=== PATIENT | male | born 1950 | race Caucasian/White ===

== ENCOUNTER → 2017-07-04 | Outpatient (CLI) | payer MEDICARE, OTHER ==
[~2017-07-04] MED LIST: ALLO300T2 PO; ALPR0.25 PO; AMLO5TAB2 PO; ATEN50TA PO; CLOT1CRE6 TOPICAL; FENO48TA PO; FURO20TA PO; LISI40TA PO; MEDR4PAK PO
[2017-07-04 10:04] LABS: INDIRECT BILIRUBIN 0.5 MG/DL (0.0-0.8); TOTAL BILIRUBIN ADULT 0.7 MG/DL (0.2-1.0)
== END ==
LOC: CLAB 08:59
PROVIDERS: ATTEND Internal Medicine Gastroenterology
DX: K76.0 Fatty (change of) liver, not elsewhere classified (principal)
CPT/HCPCS: 36415; 80076

== ENCOUNTER → 2017-08-11 | Outpatient (CLI) | payer MEDICARE, OTHER ==
[2017-08-11 09:33] LABS: HEMATOCRIT 42.1 % (39.0-51.0); MEAN CELL VOLUME 93.6 FL (80.0-100.0); MEAN CORPUSCULAR HEMOGLOBIN 31.6 PG (27.0-34.0); MEAN CORPUSCULAR HGB CONC 33.7 % (32.0-36.0); PLATELET COUNT 94 TH/MM3 (150-450); RED CELL DISTRIBUTION WIDTH 15.9 % (11.6-17.2); WHITE BLOOD COUNT 6.9 TH/MM3 (4.0-11.0)
[2017-08-11 09:39] LABS: REVIEW FLAG FINAL
[2017-08-11 10:20] LABS: BICARBONATE 24.3 MEQ/L (21.0-32.0); POTASSIUM 4.1 MEQ/L (3.5-5.1)
[2017-08-11 10:26] LABS: BLOOD, URINE NEG (NEG); GLUCOSE,URINE NEG (NEG); KETONE, URINE NEG (NEG); NITRITE,URINE NEG (NEG); PH, URINE 5.5 (5.0-8.5); URINE COLOR YELLOW (YELLW/STRAW)
== END ==
LOC: CLAB 09:05
PROVIDERS: ATTEND Internal Medicine Nephrology
DX: N18.3 Chronic kidney disease, stage 3 (moderate) (principal)
CPT/HCPCS: 36415; 80069; 81001; 85027

== ENCOUNTER 2018-01-02 04:26 | Emergency (ER) | payer MEDICARE, OTHER ==
[~2018-01-02] VITALS: Ht 175.3 cm; Wt 113.6 kg
[~2018-01-02 04:26] MED LIST changes: -FENO48TA PO; +ROSU1TAB6 PO
[2018-01-02 04:32] VITALS: BP 152/82; PULSE 89; RESP 18; TEMP 98.4; O2SAT 97
[2018-01-02] MEDS ORDERED: MORPHINE SULFATE 2 MG/ML INJ IV PUSH ONE (04:45)
[2018-01-02] MEDS ORDERED: SODIUM CHLORIDE 0.9% FLUSH 10 ML FLUSH IV FLUSH PRN (04:45)
[2018-01-02] MEDS ORDERED: ONDANSETRON HCL 4 MG/2 ML VIAL IVP ONE (04:45)
--- NOTE | 2018-01-02 05:02 | PD ---
HPI Chief Complaint: GI Complaint Time Seen by Provider: 04:40 Travel History International Travel<30 days: No Contact w/Intl Traveler<30days: No Traveled to known affect area: No History of Present Illness HPI 67-year-old male presents to the emergency department for complaint of 8/10 upper abdominal pain 2 days associated with nausea radiating into his back. Patient denies chest pain shortness of breath sweats vomiting or change in bowel habit. No report of injury. Patient is concerned he may have pancreatitis. Patient is status post cholecystectomy. Patient has hypertension hypertriglyceridemia patient rates his pain 8/10 intensity. Patient is taking no medication for symptom relief. Patient is unable to identify exacerbating or alleviating factors. Patient admits to alcohol use and has been drinking alcohol recently. Patient also has history of hypertriglyceridemia. No report of hematemesis coffee-ground emesis melena hematochezia. PFSH Past Medical History Narrative Medical Hypertension dyslipidemia gouty arthritis hypothyroidism CHF chronic kidney disease; alcohol use; nursing notes ?: Not Social History Tobacco Use: No Allergies-Medications (Allergen,Severity, Reaction): Coded Allergies: No Known Allergies (Verified Allergy, Unknown, 09/29/17) Reported Meds & Prescriptions Reported Meds & Active Scripts Active Zofran Odt (Ondansetron Odt) 4 Mg Tab 4 Mg SL Q6HR PRN Carafate (Sucralfate) 1 Gram Tab 1 Gm PO Q6HR 7 Days On empty stomach Rosuvastatin (Rosuvastatin Calcium) 10 Mg Tab 10 Mg PO HS Clotrimazole Anti-Fungal Topical (Clotrimazole) 1% Cream 1 Applic TOPICAL BID Reported Furosemide 20 Mg Tab 20 Mg PO DAILY Atenolol 50 Mg Tab 50 Mg PO DAILY Amlodipine (Amlodipine Besylate) 5 Mg Tab 5 Mg PO DAILY Lisinopril 40 Mg Tab 40 Mg PO DAILY Review of Systems Except as stated in HPI: all other systems reviewed are Neg General / Constitutional: No: Fever, Chills HENT: No: Congestion Cardiovascular: No: Chest Pain or Discomfort Respiratory: No: Shortness of Breath Gastrointestinal: Positive: Nausea, Abdominal Pain Genitourinary: No: Dysuria, Flank Pain Musculoskeletal: No: Myalgias, Arthralgias Skin: No Rash Neurologic: No: Weakness Psychiatric: No: Anxiety Hematologic/Lymphatic: No: Lymph Node Enlargement Physical Exam Narrative GENERAL: Well-developed well-nourished male no acute distress or respiratory distress SKIN: Warm and dry. Multiple abdominal wall petechia, no purpuric lesions no vesicles no pustules HEAD: Normocephalic. EYES: No scleral icterus. No injection or drainage. NECK: Supple, trachea midline. No JVD or lymphadenopathy. CARDIOVASCULAR: Regular rate and rhythm without murmurs, gallops, or rubs. RESPIRATORY: Breath sounds equal bilaterally. No accessory muscle use. GASTROINTESTINAL: Abdomen soft, non-tender, nondistended. Petechia noted to abdominal wall. (Patient reports "I have liver disease." "This looks good.") MUSCULOSKELETAL: No cyanosis, or edema. BACK: Nontender without obvious deformity. No CVA tenderness. Data Data Last Documented VS Orders Orders Complete Blood Count With Diff (01/02/18 04:40) Comprehensive Metabolic Panel (01/02/18 04:40) Lipase (01/02/18 04:40) Prothrombin Time / Inr (Pt) (01/02/18 04:40) Act Partial Throm Time (Ptt) (01/02/18 04:40) Ct Abd/Pel W Iv Contrast(Rout) (01/02/18 04:40) Iv Access Insert/Monitor (01/02/18 04:40) Ecg Monitoring (01/02/18 04:40) Oximetry (01/02/18 04:40) Ondansetron Inj (Zofran Inj) (01/02/18 04:45) Sodium Chloride 0.9% Flush (Ns Flush) (01/02/18 04:45) Electrocardiogram (01/02/18 04:40) Alcohol (Ethanol) (01/02/18 04:40) Magnesium (Mg) (01/02/18 04:40) Troponin I (01/02/18 04:40) Morphine Inj (Morphine Inj) (01/02/18 04:45) Iohexol 350 Inj (Omnipaque 350 Inj) (01/02/18 05:55) Pantoprazole Inj (Protonix Inj) (01/02/18 06:30) Ketorolac Inj (Toradol Inj) (01/02/18 06:30) Sucralfate Liq (Carafate Liq) (01/02/18 07:00) Ed Discharge Order (01/02/18 06:57) Labs Laboratory Tests Test 01/02/18 05:00 White Blood Count 6.7 TH/MM3 Red Blood Count 4.83 MIL/MM3 Hemoglobin 14.8 GM/DL Hematocrit 44.6 % Mean Corpuscular Volume 92.4 FL Mean Corpuscular Hemoglobin 30.7 PG Mean Corpuscular Hemoglobin Concent 33.2 % Red Cell Distribution Width 14.6 % Platelet Count 106 TH/MM3 Mean Platelet Volume 6.9 FL Neutrophils (%) (Auto) 63.0 % Lymphocytes (%) (Auto) 21.9 % Monocytes (%) (Auto) 8.4 % Eosinophils (%) (Auto) 1.8 % Basophils (%) (Auto) 4.9 % Neutrophils # (Auto) 4.2 TH/MM3 Lymphocytes # (Auto) 1.5 TH/MM3 Monocytes # (Auto) 0.6 TH/MM3 Eosinophils # (Auto) 0.1 TH/MM3 Basophils # (Auto) 0.3 TH/MM3 CBC Comment DIFF FINAL Differential Comment Prothrombin Time 11.2 SEC Prothromb Time International Ratio 1.1 RATIO Activated Partial Thromboplast Time 28.2 SEC Blood Urea Nitrogen 18 MG/DL Creatinine 1.20 MG/DL Random Glucose 117 MG/DL Total Protein 7.0 GM/DL Albumin 4.0 GM/DL Calcium Level 8.9 MG/DL Magnesium Level 1.6 MG/DL Alkaline Phosphatase 63 U/L Aspartate Amino Transf (AST/SGOT) 27 U/L Alanine Aminotransferase (ALT/SGPT) 46 U/L Total Bilirubin 1.2 MG/DL Sodium Level 139 MEQ/L Potassium Level 3.7 MEQ/L Chloride Level 105 MEQ/L Carbon Dioxide Level 25.6 MEQ/L Anion Gap 8 MEQ/L Estimat Glomerular Filtration Rate 60 ML/MIN Troponin I LESS THAN 0.02 NG/ML Lipase 176 U/L Ethyl Alcohol Level LESS THAN 3 MG/DL MDM Medical Decision Making Medical Screen Exam Complete: Yes Emergency Medical Condition: Yes Medical Record Reviewed: Yes Interpretation(s) CBC & BMP Diagram 01/02/18 05:00 Total Protein 7.0, Albumin 4.0, Calcium Level 8.9, Magnesium Level 1.6, Alkaline Phosphatase 63, Aspartate Amino Transf (AST/SGOT) 27, Alanine Aminotransferase (ALT/SGPT) 46, Total Bilirubin 1.2 H Vital Signs Date Time Temp Pulse Resp B/P (MAP) Pulse Ox O2 Delivery O2 Flow Rate FiO2 01/02/18 04:32 98.4 89 18 152/82 (105) 97 EKG: Normal sinus rhythm rate [address] elevation injury pattern or ectopy noted Troponin I: less than 0.02, not elevated Last Impressions Abdomen/Pelvis CT 01/02/18 0440 Signed Impressions: Service Date/Time: Tuesday, January 02, 2018 05:48 - CONCLUSION: 1. No acute finding is identified to explain the upper abdominal pain. There is a midline fat-containing hernia superior to the umbilicus. 2. Marked splenomegaly. The spleen measures greater than 23 cm in length. 3. Nonacute findings include mild atherosclerotic disease, bilateral renal cysts, and prostatomegaly. Nate Nunez MD Differential Diagnosis Abdominal pain, gastritis, choledocholithiasis, pancreatitis, abdominal aortic aneurysm, atypical chest pain, ACS, [place] Narrative Course IV access obtained patient placed on court monitor with continuous pulse oximetry patient administered Zofran 4 mg IV and morphine sulfate 3 mg IV Patient resting comfortably states some mild persistent tenderness to the epigastric that is reproducible with palpation Lab values grossly normal range troponin I is less than 0.02 EKG shows no acute ST elevation injury pattern CT abdomen pelvis shows splenomegaly and no acute intra-abdominal or pelvic abnormality no ascites. Patient's M alcohol is less than 3. Patient has known history of Multani and is encouraged not to drink alcoholic beverages Patient given Protonix 40 mg IV Toradol 30 mg IV and Carafate 1 g by mouth. Patient states he feels much improved and is desirous of being discharged home and plans to follow-up with his primary care provider this week. Patient is encouraged to return the emergency department for any concerns or change in condition Diagnosis Primary Impression: Gastritis Qualified Codes: K29.00 - Acute gastritis without bleeding Additional Impressions: Thrombocytopenia Splenomegaly Referrals: Primary Care Physician 2 days Patient Instructions: Narcotic given in the ED, General Instructions Additional Instructions: Follow-up with primary care provider Take medication as prescribed Take chronic medications as chronically prescribed Do not drink alcoholic beverages Do not use nonsteroidal anti-inflammatory medications such as ibuprofen/Motrin/ Advil or Naprosyn/naproxen/Aleve Return the emergency department for any concerns or change in condition Med/Other Pt SpecificInfo: Prescription(s) given Scripts Ondansetron Odt (Zofran Odt) 4 Mg Tab 4 MG SL Q6HR Y for Nausea/Vomiting, #10 TAB 0 Refills Prov: Christine Alfredo MD 01/02/18 Sucralfate (Carafate) 1 Gram Tab 1 GM PO Q6HR for Ulcer Prevention for 7 Days, #120 TAB 0 Refills On empty stomach Prov: Christine Alfredo MD 01/02/18 Disposition: 01 DISCHARGE HOME Condition: Stable Christine Alfredo MD Jan 02, 2018 05:02
[2018-01-02 05:06] LABS: AUTOMATED NEUTROPHIL # 4.2 TH/MM3 (1.8-7.7); BASOPHIL # 0.3 TH/MM3 (0-0.2); BASOPHIL % 4.9 % (0.0-2.0); EOSINOPHIL # 0.1 TH/MM3 (0-0.4); EOSINOPHIL % 1.8 % (0.0-4.0); HEMATOCRIT 44.6 % (39.0-51.0); HEMOGLOBIN 14.8 GM/DL (13.0-17.0); LYMPH % 21.9 % (9.0-44.0); LYMPHOCYTE # 1.5 TH/MM3 (1.0-4.8); MEAN CELL VOLUME 92.4 FL (80.0-100.0); MEAN CORPUSCULAR HEMOGLOBIN 30.7 PG (27.0-34.0); MEAN CORPUSCULAR HGB CONC 33.2 % (32.0-36.0); MEAN PLATELET VOLUME 6.9 FL (7.0-11.0); MONO % 8.4 % (0.0-8.0); MONOCYTE # 0.6 TH/MM3 (0-0.9); PLATELET COUNT 106 TH/MM3 (150-450); RED BLOOD COUNT 4.83 MIL/MM3 (4.50-5.90); RED CELL DISTRIBUTION WIDTH 14.6 % (11.6-17.2); WHITE BLOOD COUNT 6.7 TH/MM3 (4.0-11.0)
[2018-01-02 05:24] LABS: CHLORIDE 105 MEQ/L (98-107); SODIUM (NA) 139 MEQ/L (136-145)
[2018-01-02 05:29] LABS: CALCIUM 8.9 MG/DL (8.5-10.1); INTERNATIONAL NORMALIZED RATIO 1.1 RATIO; PROTHROMBIN TIME - PATIENT 11.2 SEC (9.8-11.6)
[2018-01-02 05:30] LABS: BICARBONATE 25.6 MEQ/L (21.0-32.0); BLOOD UREA NITROGEN 18 MG/DL (7-18); GLUCOSE,RANDOM 117 MG/DL (74-106); MAGNESIUM 1.6 MG/DL (1.5-2.5)
[2018-01-02 05:32] LABS: ALT (GPT) 46 U/L (12-78); AST (GOT) 27 U/L (15-37); GLOMERULAR FILTRATION RATE 60 ML/MIN (>89)
[2018-01-02 05:34] LABS: TOTAL BILIRUBIN ADULT 1.2 MG/DL (0.2-1.0)
[2018-01-02 05:35] LABS: ALKALINE PHOSPHATASE 63 U/L (45-117)
[2018-01-02 05:38] LABS: TROPONIN I LESS THAN 0.02 NG/ML (0.02-0.05)
[2018-01-02] MEDS ORDERED: IOHEXOL 350 MG/ML 10 ML VIAL (for RAD DIAG) IVCONTRAST ONE (05:55)
--- NOTE | 2018-01-02 06:15 | RADRPT ---
EXAM DATE/TIME: 01/02/2018 05:48 [facility] COMPARISON: No previous studies available for comparison. INDICATIONS : Upper abdominal pain. IV CONTRAST: 100 cc Omnipaque 350 (iohexol) IV ORAL CONTRAST: No oral contrast ingested. RADIATION DOSE: 21.47 CTDIvol (mGy) MEDICAL HISTORY : Hypertension. Congestive heart failure. SURGICAL HISTORY : None. ENCOUNTER: Initial ACUITY: 2 days PAIN SCALE: 8/10 LOCATION: upper quadrant TECHNIQUE: Volumetric scanning of the abdomen and pelvis was performed. Using automated exposure control and ad justment of the mA and/or kV according to patient size, radiation dose was kept as low as reasonably achievable to obtain optimal diagnostic quality images. DICOM format image data is available electro nically for review and comparison. FINDINGS: LOWER LUNGS: The visualized lower lungs are clear. LIVER: There are 3 low-density lesions within the liver measuring between 5 mm and 8 mm. These are too small to characterize. Patient is post cholecystectomy clips in the gallbladder fossa. There is no dilati on of the biliary tree. SPLEEN: Spleen is significantly enlarged measuring 23.1 cm. No focal lesion is seen. PANCREAS: Within normal limits. KIDNEYS: Normal in size and shape. There is no mass, stone or hydronephrosis. There is a 3.9 cm and 1.3 cm lo w-density lesion in the right mid kidney and a 4.6 cm low-density lesion in the left mid kidney all o f which have density measurements consistent with simple cysts. There is a 7 mm low-density lesion in the lower pole the right kidney which is incidental and too small to characterize. ADRENAL GLANDS: Within normal limits. VASCULAR: There is no aortic aneurysm. There is mild atherosclerotic disease. BOWEL/MESENTERY: The stomach, small bowel, and colon demonstrate no acute abnormality. There is no free intraperitone al air or fluid. There is sigmoid diverticulosis. The appendix is normal. ABDOMINAL WALL: There is a fat-containing midline anterior abdominal wall hernia superior to the umbilicus. RETROPERITONEUM: There is no lymphadenopathy. BLADDER: No wall thickening or mass. REPRODUCTIVE: Prostate gland is enlarged. INGUINAL: There is no lymphadenopathy or hernia. MUSCULOSKELETAL: There are degenerative changes of the lumbar spine. CONCLUSION: 1. No acute finding is identified to explain the upper abdominal pain. There is a midline fat-contain ing hernia superior to the umbilicus. 2. Marked splenomegaly. The spleen measures greater than 23 cm in length. 3. Nonacute findings include mild atherosclerotic disease, bilateral renal cysts, and prostatomegaly. Nate Nunez MD on January 02, 2018 at 6:08 Board Certified Radiologist. This report was verified electronically.
[2018-01-02] MEDS ORDERED: PANTOPRAZOLE SODIUM 40 MG VIAL IV PUSH ONE (06:30)
[2018-01-02] MEDS ORDERED: KETOROLAC TROMETHAMINE 30 MG/ML (IVP) VIAL IV PUSH ONE (06:30)
[2018-01-02 06:55] VITALS: RESP 16; O2SAT 95
[2018-01-02] MEDS ORDERED: ZOFR4TAB3 SL (07:00)
[2018-01-02] MEDS ORDERED: SUCRALFATE 1 GM/10 ML CUP PO ONE (07:00)
[2018-01-02] MEDS ORDERED: CARA1TAB6 PO (07:00)
[2018-01-02 07:01] VITALS: BP 126/73; TEMP 98.3
--- NOTE | 2018-01-02 18:47 | EKG ---
Date Performed: 01/02/2018 Time Performed: 05:02:39 PTAGE: 67 years EKG: Sinus rhythm NORMAL ECG NO PREVIOUS TRACING DOCTOR: Haresh Smith Interpretating Date/Time 01/02/2018 18:43:21
== END 2018-01-02 07:41 | disposition home or self-care (01) ==
LOC: PHED 04:26
DX: K29.00 Acute gastritis without bleeding (principal); D69.6 Thrombocytopenia, unspecified; R16.1 Splenomegaly, not elsewhere classified; I10 Essential (primary) hypertension; E78.1 Pure hyperglyceridemia; Z79.899 Other long term (current) drug therapy; Z72.89 Other problems related to lifestyle
CPT/HCPCS: 74177; 80053; 80307; 83690; 83735; 84484; 85025; 85610; 85730; 93005; 96374; 96375; 99284; C9113; J1885; J2270; J2405; Q9967